=== PATIENT | female | born 1990 | race Caucasian/White ===

== ENCOUNTER 2016-03-25 04:42 | Inpatient (IN) | payer OTHER ==
[~2016-03-25] VITALS: Ht 160 cm; Wt 55.8 kg
[~2016-03-25 04:42] MED LIST: CELEXA40 MG PO
[2016-03-25 05:26] LABS: EOSINOPHIL (%) 0.8 % (0-5); EOSINOPHIL COUNT 0.1 K/uL (0-0.3); HEMATOCRIT 38.4 % (36.0-46.0); IMMATURE GRANULOCYTE (%) 1.2 % (0.0-0.7); IMMATURE GRANULOCYTE COUNT 1.2 K/uL; LYMPHOCYTE COUNT 2.2 K/uL (1.0-2.8); MCH 31.1 PG (29.0-34.0); MCHC 34.4 G/DL (30.0-36.0); MCV 90.4 FL (83-99); MEAN PLAT.VOLUME 9.9 uM^3 (9.5-12.4); MONOCYTE (%) 6.8 % (3-12); MONOCYTE COUNT 0.7 K/uL (0-0.8); NEUTROPHIL (%) 69.4 % (45-76); NEUTROPHIL COUNT 7.2 K/uL (1.8-6.4); PLATELET COUNT 265 K/uL (156-360); RBC DIS.WIDTH-CV 12.9 % (11.8-14.6); RBC DIS.WIDTH-SD 41.8 % (39-53); RED BLOOD COUNT 4.25 M/uL (3.80-5.20); WHITE BLOOD COUNT 10.4 K/uL (4.1-10.2)
[2016-03-25 05:32] LABS: CHLORIDE 109 mEq/L (99-109); POTASSIUM 3.1 mEq/L (3.7-5.4); SODIUM 142 mEq/L (136-147)
[2016-03-25 05:34] LABS: GLUCOSE 135 mg/dL (70-99)
[2016-03-25 05:35] LABS: ANION GAP 10 MEQ/L (2-14)
[2016-03-25 05:36] LABS: TOTAL BILIRUBIN 0.3 mg/dL (0.0-1.0)
[2016-03-25 05:37] LABS: SERUM ETHYL ALCOHOL < 10 mg/dL
[2016-03-25 05:38] LABS: ALKALINE PHOSPHATASE 69 IU/L (3-129); GFR ESTIMATE (CALCULATED) > 59 mL/min/
[2016-03-25 05:40] LABS: UREA NITROGEN (BUN) 6 mg/dL (9-23)
[2016-03-25 05:41] LABS: SALICYLATE < 5.0 MG/DL (15-30)
[2016-03-25 05:48] LABS: QUANTITATIVE HCG < 4.0 MIU/ML
[2016-03-25 05:57] LABS: AMPHETAMINE NEGATIVE (500 ng/mL); BARBITURATES NEGATIVE (200 ng/mL); BENZODIAZEPINES NEGATIVE (150 ng/mL); COCAINE NEGATIVE (150 ng/mL); INTERNAL CONTROLS VALID? YES; METHADONE NEGATIVE (200 ng/mL); METHAMPHETAMINE NEGATIVE (500 ng/mL); OPIATES (MORPHINE) NEGATIVE (100 ng/mL); OXYCODONE NEGATIVE (100 ng/mL); PHENCYCLIDINE NEGATIVE (25 ng/mL); PROPOXYPHENE NEGATIVE (300 ng/mL); THC CANNABINOIDS PRESUMPTIVE POSITIVE (50 ng/mL); TRICYCLIC ANTIDEPRESSANTS NEGATIVE (300 ng/mL)
[2016-03-25 05:58] LABS: ADD MEDTOX COMMENT Y
[2016-03-25 06:06] LABS: ADD MIUA? NO; BILIRUBIN NEGATIVE; BLOOD NEGATIVE; COLOR YELLOW ((YELLOW)); GLUCOSE (STRIP) NEGATIVE; KETONES NEGATIVE; LEUKOCYTES NEGATIVE; NITRITE NEGATIVE; PROTEIN (STRIP) NEGATIVE; SPECIFIC GRAVITY 1.028 (1.000-1.030); UCUL ADDED? NO; UROBILINOGEN 0.2 MG/DL (0.2-1.0)
[2016-03-25 19:25] VITALS: BP 112/69
[2016-03-25 21:31] VITALS: BP 112/69
[2016-03-26 07:41] VITALS: BP 100/59
[2016-03-26 15:41] VITALS: BP 104/55
[2016-03-27 07:46] VITALS: BP 102/57
[2016-03-27 15:27] VITALS: BP 117/69
[2016-03-28 09:46] VITALS: BP 94/44
[2016-03-28 15:41] VITALS: BP 107/53
[2016-03-29 07:58] VITALS: BP 99/54
[2016-03-29] MEDS ORDERED: CELEXA40 MG PO (09:22)
== END 2016-03-29 10:11 | disposition home or self-care (01) | DRG 881 ==
LOC: EME 04:42 → 1WEST 14:41 → EDOF 14:41 → 1WEST 19:23
PROVIDERS: Emergency Medicine
DX: F34.1 Dysthymic disorder (principal); F12.10 Cannabis abuse, uncomplicated
CPT/HCPCS: 80053; 81003; 84132; 84443; 84702; 84999; 85025; 90837; 93005; 97150 GO; 97165 GO; 97530 GO; 99281; 99285; G0480

== ENCOUNTER 2016-09-15 13:45 | Emergency (ER) | payer OTHER ==
[~2016-09-15] VITALS: Ht 160 cm; Wt 57.1 kg
[2016-09-15 14:29] LABS: ADD MIUA? NO; BILIRUBIN NEGATIVE; BLOOD NEGATIVE; COLOR YELLOW ((YELLOW)); GLUCOSE (STRIP) NEGATIVE; KETONES NEGATIVE; LEUKOCYTES NEGATIVE; NITRITE NEGATIVE; PROTEIN (STRIP) NEGATIVE; SPECIFIC GRAVITY 1.016 (1.000-1.030); UCUL ADDED? NO; UROBILINOGEN 0.2 MG/DL (0.2-1.0)
[2016-09-15 14:38] LABS: HEMATOCRIT 40.3 % (36.0-46.0); MCH 31.3 PG (29.0-34.0); MCHC 34.7 G/DL (30.0-36.0); MEAN PLAT.VOLUME 9.9 uM^3 (9.5-12.4); PLATELET COUNT 239 K/uL (156-360); RBC DIS.WIDTH-CV 12.1 % (11.8-14.6); RED BLOOD COUNT 4.48 M/uL (3.80-5.20)
[2016-09-15 14:51] LABS: CHLORIDE 105 mEq/L (99-109); POTASSIUM 3.8 mEq/L (3.7-5.4); SODIUM 140 mEq/L (136-147)
[2016-09-15 14:52] LABS: GLUCOSE 88 mg/dL (70-99)
[2016-09-15 14:54] LABS: ANION GAP 8 MEQ/L (2-14)
[2016-09-15 14:56] LABS: GFR ESTIMATE (CALCULATED) > 59 mL/min/
[2016-09-15 14:57] LABS: UREA NITROGEN (BUN) 6 mg/dL (9-23)
[2016-09-15 15:18] LABS: INTERNAL CONTROL VALID? YES
[2016-09-15 17:51] VITALS: BP 113/70
== END 2016-09-15 18:17 | disposition left against medical advice (07) ==
LOC: EME 13:45 → EXP 13:45
PROVIDERS: Nurse Practitioner Family
DX: R10.32 Left lower quadrant pain (principal); N64.4 Mastodynia; N83.02 Follicular cyst of left ovary; F17.200 Nicotine dependence, unspecified, uncomplicated
CPT/HCPCS: 74020; 76856; 80048; 81003; 84703; 85027; 93975; 99281; 99283; J1885